=== PATIENT | male | born 1980 | race Caucasian/White ===

== ENCOUNTER 2017-07-21 11:16 | Observation (INO) | payer OTHER ==
[~2017-07-21] VITALS: Ht 177.8 cm; Wt 95.3 kg
--- NOTE | ~2017-07-21 | D ---
[facility] [place] [address] DISCHARGE SUMMARY Name: JODY NICOLE Room #: 401-I [facility] Milagro Harvey#: [id number] Admission: 07/21/17 Attend Phys: Neo Arvizu DO Discharge: 07/22/17 Date of : 78 Report #: [id number] THIS REPORT FOR: //name// CC: Neo Arvizu FAM unknown Moe Robles MD DATE OF SERVICE: 07/22/2017 HISTORY OF PRESENT ILLNESS: This 36-year-old white male was admitted for observation purposes with severe lower abdominal pain, onset on the day of admission. His past history included generally good health, 1 previous episode of gastroenteritis, borderline hypertension, situational-induced anxiety and several carbuncles on his thighs. He was on no medications. HOSPITAL COURSE: Initial physical revealed an uncomfortable, hypertensive white male. He was afebrile. BP 120/100 initially. Head and neck negative. Lungs are clear. Cardiac exam negative. The abdomen revealed tenderness in the hypogastric area and left lower quadrant with decreased bowel sounds. No rebound or guarding were appreciated. Extremities and neurologic were normal. White count was elevated to 23,000 with a leftward shift. Hemoglobin 16. Electrolytes normal. BUN 9, creatinine 0.8. Lactic acid high at 2.4, returned to normal by the next day. Calcium low at 8.1. Liver enzymes normal. Albumin low at 3.0. Lipase normal. CAT scan of the abdomen and pelvis revealed heterogeneous appearance of the spleen, unable to rule out splenic infarct and bowel wall thickening of the ascending colon, which was nonspecific. The patient was seen in consult with Dr. Robles and was treated with fluids and IV Cipro and Flagyl for possible colitis. He progressively improved. On the day of admission, his white count was down to 11,800 with less left shift. Hemoglobin was 14 grams. Electrolytes normal. Liver enzymes normal. Lactic acid back to normal. The patient's abdominal exam was negative and he was eating solid foods with stable vital signs. His discharge blood pressure was 123/85. On the afternoon of 07/22/2017, he was discharged home on a low salt diet, on Cipro 500 mg b.i.d. for another 5 days and metronidazole 250 mg t.i.d. for another 5 days. He will call me if he has further abdominal pain and I will see him in 2 weeks. FINAL DIAGNOSES: 1. Abdominal pain and leukocytosis consistent with viral gastroenteritis and mesenteric lymphadenitis. [address] [address] DISCHARGE SUMMARY Name: JODY NICOLE Room #: 401-I [facility] Harvey#: [id number] Admission: 07/21/17 Attend Phys: Neo Arvizu DO Discharge: 07/22/17 Date of : 78 Report #: [id number] 2. Borderline hypertension. 3. Mild protein-calorie malnutrition. <ELECTRONICALLY SIGNED> By: Neo Arvizu DO 07/24/17 0831 9 Neo Arvizu DO /yousif
--- NOTE | ~2017-07-21 | H ---
[facility] [place] [address] HISTORY AND PHYSICAL Name: JODY NICOLE Room #: 401-I [facility] M.Christian#: [id number] Admission: 07/21/17 Attend Phys: Neo Arvizu DO Discharge: Date of : 78 Report #: [id number] THIS REPORT FOR: //name// CC: Neo Arvizu FAM unknown DATE OF SERVICE: 07/21/2017 HISTORY OF PRESENT ILLNESS: This is 36-year-old white male who is admitted through Emergency Room with acute abdominal pain and leukocytosis. The patient was in good health when this morning at work, he suddenly developed severe pain in his hypogastric area and left lower quadrant of his abdomen, which he felt like a "lead weight" causing fever, chills and nausea. He did not vomit, but felt like he wanted to. The pain became severe and he came to the Emergency Room where he was found to have a white count of 23,000, in moderate pain, and CAT scan findings of possible ascending colitis and a splenic infarct. The patient denies dysuria, recent unusual food intake, alcohol use, chronic GI problems or any previous abdominal surgeries. PAST MEDICAL HISTORY: Borderline hypertension, situational-induced anxiety from work, carbuncles on his thighs. MEDICATIONS ON ADMISSION: None. ALLERGIES: MOLD, POLLEN, DUST AND RAGWEED. SOCIAL HISTORY: He works for an [employer]. Does not smoke or drink. REVIEW OF SYSTEMS: Denies chest pain, exertional dyspnea, rash, weight loss, dysuria, hematuria, diarrhea or constipation. PHYSICAL EXAMINATION: GENERAL: Uncomfortable, but pleasant white male. VITAL SIGNS: BP initially 120/100, temperature 37.1, respirations 16, pulse 90. HEAD: No rash or trauma. EARS, NOSE AND THROAT: No lesions. Mucosa is moist. EYES: No icterus, conjunctivitis. NECK: Supple. LUNGS: Clear. Cough is dry. HEART: Rhythm regular without murmurs. ABDOMEN: Soft at present with decreased bowel sounds, but he has had a shot of morphine in the Emergency Room. No guarding or rebound or masses appreciated. EXTREMITIES: Normal without edema. NEUROLOGIC: Alert and oriented. Accurate historian. LABORATORY DATA: White count 23,[address] [address] HISTORY AND PHYSICAL Name: JODY NICOLE Room #: [facility] M.R.#: [id number] Admission: 07/21/17 Attend Phys: Neo Arvizu DO Discharge: Date of : 78 Report #: [id number] with a left shift. Chemistry profile was within acceptable limits. CAT scan of the abdomen reveals heterogeneous uptake in the spleen consistent with possible infarcts and possible thickening of the ascending colon. Appendix is visualized and is normal. IMPRESSION: 1. Acute abdominal pain with leukocytosis, fever and chills. 2. Possible mesenteric lymphadenitis. 3. Rule out gastroenteritis. 4. Rule out evolving appendicitis. 5. History of hypertension. PLAN: Keep n.p.o., IV fluids, IV antibiotics for possible colitis. General Surgery consult with Dr. Robles has been obtained in the Emergency Room and he recommends following the patient conservatively. We will repeat studies and exams in the morning. <ELECTRONICALLY SIGNED> By: Neo Arvizu DO 07/22/17 0738 2020 2216 Neo Arvizu DO /nt
--- NOTE | ~2017-07-21 | HC ---
[facility] [address] CONSULTATION Name: JODY NICOLE Room #: 401-I [facility] M.R.#: [id number] Admission: 07/21/17 Attend Phys: Neo Arvizu DO Discharge: Date of : 78 Report #: [id number] THIS REPORT FOR: //name// CC: Neo Arvizu [facility] unknown DATE OF SERVICE: 07/21/2017 ATTENDING PHYSICIAN: Neo Arvizu DO REASON FOR CONSULTATION: Abdominal pain, nausea and leukocytosis. HISTORY OF PRESENT ILLNESS: This is a 36-year-old otherwise healthy male patient who was seen in the [place] emergency room with abdominal discomfort, fever, chills, nausea, and bloating. The symptoms began around 9:30 this morning. 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 The patient himself took a Z-KYLE over [place] and denies any upper respiratory symptoms at this time. His last bowel movement was this morning and was reportedly normal. He denies any bright red blood per rectum. He reports having diarrhea twice a month. Again, he denies chronic diarrhea issues or family history of inflammatory bowel disease. Seen in the emergency room, he was found to have leukocytosis, and elevated lactate, and CT findings of a thickened ascending colon as well as some splenic infarcts. The appendix was felt to be normal. I have been asked to see the patient for further evaluation and treatment. PAST MEDICAL HISTORY: Denies, but has seasonal allergies. PAST SURGICAL HISTORY: Facial plastic surgery as a child, incision and drainage of small lower extremity abscesses. CURRENT MEDICATIONS: None. ALLERGIES: No known drug allergies. FAMILY HISTORY: Significant for heart disease, stroke and a brother had bladder cancer. He denies a history of inflammatory bowel disease. SOCIAL HISTORY: The patient denies use of tobacco, having quit 10 years ago. Denies use of illicit drugs or alcohol. He works at [employer]. REVIEW OF SYSTEMS: As per history of present illness, in addition: GENERAL: The patient reports alternating fever and chills. Denies unintentional weight loss. HEENT: Denies changes in taste, vision, hearing, or smell. RESPIRATORY: Denies shortness of breath, COPD, or asthma. [address] [address] CONSULTATION Name: JODY NICOLE Room #: 401-I [facility] Milagro Harvey#: [id number] Admission: 07/21/17 Attend Phys: Neo Arvizu DO Discharge: Date of : 78 Report #: [id number] CARDIOVASCULAR: Denies chest pain or palpitations. GASTROINTESTINAL: As per history of present illness. His abdominal pain has worn on over the course of the day. Denies significant abdominal pain at this time. Denies bright red blood per rectum. GENITOURINARY: Denies dysuria, urgency, increased urinary frequency or hematuria. MUSCULOSKELETAL: Denies myalgia, arthralgia, or arthritis. NEUROLOGIC: Denies headaches, numbness or tingling. PSYCHIATRIC: Denies depression, anxiety, or suicidal ideations. SKIN AND INTEGUMENTARY: Denies new skin lesions, rashes, or moles. ENDOCRINE: Denies polydipsia, polyuria, heat or cold intolerance. HEMATOLOGIC: Denies easy bleeding, bruising or anemia. All other review of systems is negative. PHYSICAL EXAMINATION: VITAL SIGNS: Temperature 98.9 earlier today, blood pressure 134/85, pulse 83, respirations 17, SpO2 95%, height 5 feet 10 inches, and weight 210 pounds. GENERAL: This is a 36-year-old healthy appearing male patient, in no acute distress. HEENT: Atraumatic, normocephalic with moist mucosal membranes. Oropharynx is clear. He has no scleral icterus. NECK: Supple. No appreciable lymphadenopathy. Trachea is midline. CHEST: Clear bilaterally. No crackles or wheezes. CARDIOVASCULAR: Regular rate and rhythm, S1, S2. ABDOMEN: Soft and mildly diffusely tender to palpation without rebound or guarding. No palpable masses. No appreciable hernias. GENITOURINARY: Normal external male genitalia. EXTREMITIES: No clubbing, cyanosis, or edema. NEUROLOGIC: Cranial nerves 2-12 are grossly intact. PSYCHIATRIC: Normal mood and affect. SKIN AND INTEGUMENTARY: No acute inflammatory changes, rashes, or lesions are present. LABORATORY DATA: CBC shows a white blood cell count of 23.4, hemoglobin 16.1, hematocrit 47.8, and platelets 224 with 84% segmented neutrophils. Influenza antigens A&B were not detected. Comprehensive metabolic profile shows sodium 143, potassium 3.8, chloride 104, CO2 of 28, BUN 11, creatinine 1.0, and glucose 127 with normal liver function tests and a normal lipase. Urinalysis showed 2+ glucose and trace ketones. Monospot test was negative. Lactate was 2.2. RADIOLOGIC STUDIES: CT of the abdomen and pelvis, findings are as noted above. The patient had a heterogenous appearance of the spleen, also represent perfusion differences versus possible splenic infarct. He was also seen to have ascending colon thickening, possibly related to incomplete distention. [facility] [address] [place] [address] CONSULTATION Name: JODY NICOLE Room #: 401-I [facility] Milagro Harvey#: [id number] Admission: 07/21/17 Attend Phys: Neo Arvizu DO Discharge: Date of : 78 Report #: [id number] IMPRESSION AND PLAN: This is a 36-year-old otherwise healthy male patient. He has slightly worsening abdominal pain, nausea, and leukocytosis with an elevated lactate. His appendix was normal. The cause for his pain is uncertain at this time, although he may have viral gastroenteritis, mesenteric adenitis, or early appendicitis. His colonic thickening may require reevaluation, and I have recommended repeat laboratory studies. He will be kept for observation overnight and I will follow along with serial abdominal exams as well as labs and x-rays as necessary. He has been placed on cipro/flagyl. His pain is not likely secondary to possible splenic infarcts seen on CT. He may benefit from a GI consult for endoscopic evaluation. He has no acute general surgery issues at this time. I will follow along closely with you. I sincerely appreciate the opportunity to participate in the care of this patient and we will leave further recommendations and orders in the electronic medical record as appropriate. Thank you very much. <ELECTRONICALLY SIGNED> By: Moe Robles MD, FACS 07/22/17 [id number] Moe Robles MD, FACS /nt
[2017-07-21 11:17] VITALS: BP 149/100
[2017-07-21 12:12] LABS: URINE BILIRUBIN NEGATIVE (Negative); URINE BLOOD NEGATIVE (Negative); URINE CLARITY CLEAR; URINE COLOR YELLOW; URINE GLUCOSE-RANDOM* 2+ (Negative); URINE KETONES TRACE (Negative); URINE LEUKOCYTES NEGATIVE (Negative); URINE NITRITE NEGATIVE (Negative); URINE PROTEIN (DIPSTICK) NEGATIVE (Negative); URINE SPECIFIC GRAVITY >= 1.030 (1.005-1.035); URINE UROBILINOGEN 0.2 E.U./dl (0.2-1.0)
[2017-07-21 13:09] LABS: HEMATOCRIT 47.8 % (42.0-52.0); HEMOGLOBIN 16.1 gm/dL (14.0-18.0); MCH 28.7 pg (26.0-34.0); MCHC 33.7 g/dL (28.0-37.0); PLATELET COUNT 324 thou/uL (150-400); RBC 5.62 mil/uL (4.50-6.00); RDW 13.7 % (10.5-14.5); WBC 23.4 thou/uL (4.0-11.0)
[2017-07-21 13:28] LABS: ALBUMIN 4.3 g/dL (3.4-5.0); POTASSIUM 3.8 mmol/L (3.5-5.1); TOTAL BILIRUBIN 0.3 mg/dL (<0.1-1.0)
[2017-07-21 13:34] LABS: ABSOLUTE NEUTROPHILS 20.1 thou/uL (1.4-8.2)
[2017-07-21 18:36] LABS: ABSOLUTE NEUTROPHILS 17.5 thou/uL (1.4-8.2); BASOPHILS 0.3 % (0.0-2.0); HEMATOCRIT 43.9 % (42.0-52.0); HEMOGLOBIN 15.3 gm/dL (14.0-18.0); LYMPHOCYTES 4.9 % (24.0-44.0); MCH 28.9 pg (26.0-34.0); MCHC 34.8 g/dL (28.0-37.0); MCV 83.1 fL (80.0-100.0); MONOCYTES 4.1 % (1.0-8.0); PLATELET COUNT 276 thou/uL (150-400); POLYS 90.7 % (36.0-66.0); RBC 5.28 mil/uL (4.50-6.00); RDW 13.7 % (10.5-14.5); WBC 19.2 thou/uL (4.0-11.0)
[2017-07-21 23:35] VITALS: BP 124/84
[2017-07-22] VITALS: BP 130/81
[2017-07-22 05:00] VITALS: BP 116/71
[2017-07-22 06:30] LABS: ABSOLUTE NEUTROPHILS 8.9 thou/uL (1.4-8.2); BASOPHILS 0.4 % (0.0-2.0); EOSINOPHILS 0.5 % (0.0-3.0); HEMATOCRIT 41.1 % (42.0-52.0); HEMOGLOBIN 14.3 gm/dL (14.0-18.0); LYMPHOCYTES 15.1 % (24.0-44.0); MCH 29.1 pg (26.0-34.0); MCHC 34.7 g/dL (28.0-37.0); MONOCYTES 8.4 % (1.0-8.0); PLATELET COUNT 256 thou/uL (150-400); POLYS 75.6 % (36.0-66.0); RBC 4.89 mil/uL (4.50-6.00); RDW 13.7 % (10.5-14.5); WBC 11.8 thou/uL (4.0-11.0)
[2017-07-22 06:36] LABS: CALCIUM 8.1 mg/dL (8.5-10.1); CREATININE 0.8 mg/dL (0.7-1.3); POTASSIUM 3.5 mmol/L (3.5-5.1); TOTAL BILIRUBIN 0.5 mg/dL (<0.1-1.0); TOTAL PROTEIN 5.9 g/dL (6.4-8.2)
[2017-07-22 09:20] VITALS: BP 123/85
[2017-07-22 14:37] VITALS: BP 123/85
[2017-07-22] MEDS ORDERED: FLAGYL PO (14:40)
[2017-07-22] MEDS ORDERED: CIPROFLOXACIN PO (14:40)
== END 2017-07-22 15:40 | disposition home or self-care (01) ==
LOC: ER 11:16 → EROBS 18:16 → 4N 23:36 → ENTRNSPT 07-22 15:34 → 4N 07-22 15:40
PROVIDERS: Internal Medicine; Physician Assistant
DX: R10.9 Unspecified abdominal pain (principal); D72.829 Elevated white blood cell count, unspecified; F41.9 Anxiety disorder, unspecified; E44.1 Mild protein-calorie malnutrition; R03.0 Elevated blood-pressure reading, without diagnosis of hypertension; Z91.09 Other allergy status, other than to drugs and biological substances